=== PATIENT | male | born 1980 | race African-American/Black ===

== ENCOUNTER 2024-05-22 19:04 | Emergency (ER) | payer BC, SELFPAY ==
--- NOTE | 2024-05-22 19:25 | ED.GENADULT ---
HPI - General Adult General Stated complaint: low blood sugar Related Data Allergies Allergy/AdvReac Type Severity Reaction Status Date / Time No Known Allergies Allergy Unverified 06/19/20 17:30 Course Course Course Narrative: RME, this is a rapid medical exam performed by Jomar Yepez please refer to primary provider for complete H&P- 43 year old male presents for evaluation of low blood sugar. Patient reports that his glucose was about 300. He injected himself with someone else's insulin about an hour and a half ago. He believes he gave himself 15 units of a rapid insulin. Patient states that he started to feel unwell and checked his sugar about 20 minutes ago and found his glucose to be 58 on his own monitor. He drank some orange juice and presents to the ER immediately. The patient is not prescribed insulin of any kind
[2024-05-22 19:27] VITALS: BP 183/84; PULSE 92; RESP 18; TEMP 37; O2SAT 97; BMI 35.0
[2024-05-22 19:35] LABS: Glucose, Whole Blood 108 mg/dL (60-115)
== END 2024-05-22 22:39 | disposition left against medical advice (07) ==
PROVIDERS: Emergency Provider Emergency Medicine
DX: E16.2 Hypoglycemia, unspecified (principal)
CPT/HCPCS: 82947; 99281